=== PATIENT | female | born 1960 | race Caucasian/White ===

== ENCOUNTER 2020-04-27 22:24 | Emergency (ER) | payer OTHER ==
[2020-04-27] MEDS ORDERED: Sodium Chloride 0.9% 10 ML Syringe FLUSH PRN (23:08)
[2020-04-27] MEDS ORDERED: Metoprolol Tartrate 50 MG Tab PO ONE (23:09)
--- NOTE | 2020-04-27 23:22 | EDM.PDOC ---
ED HPI GENERAL MEDICAL PROBLEM - General Chief Complaint: General Stated Complaint: MEDICAL VIA [place] Time Seen by Provider: 04/27/20 23:05 Source of Information: Reports: Patient, EMS, RN. Denies: Old Records History Limitations: Reports: Other (no old records) - History of Present Illness INITIAL COMMENTS - FREE TEXT/NARRATIVE: 59 yo female from the [facility] noticed a cough last night and this morning a little hemoptysis. She felt fairly normal all day, but tonight had pretty severe transient hemoptysis that caused her to call 911. She has had some blood also from her nose. No fever. She felt short of breath tonight with the hemoptysis. She is a light life long smoker. Her did not accompany her [place] this weekend. She is not on any anticoagulants. Onset: Today, Sudden Onset Date: 04/27/20 Duration: Minutes:, Improving Location: Reports: Chest Quality: Reports: Other (no pain) Severity: Moderate (bleeding) Improves with: Reports: Other (? time) Worsens with: Reports: Other (unknown) Context: Reports: Other (See HPI) Associated Symptoms: Reports: Shortness of Breath. Denies: Fever/Chills Treatments SWATCH CHECKER: Reports: Other (see below) (none) - Related Data Allergies Allergy/AdvReac Type Severity Reaction Status Date / Time No Known Allergies Allergy Verified 04/27/20 22:54 Home Meds: Home Meds Metoprolol Succinate [Toprol XL] 200 mg PO DAILY #30 tab.sr.24h 04/28/20 [Rx] amLODIPine [Norvasc] 5 mg PO DAILY #30 tab 04/28/20 [Rx] Past Medical History HEENT History: Reports: Impaired Vision [employer] History: Reports: - Infectious Disease History Infectious Disease History: Reports: Chicken Pox, Measles, Mumps - Past Surgical History Head Surgeries/Procedures: Reports: None HEENT Surgical History: Reports: None Dermatological Surgical History: Reports: None Social & Family History - Tobacco Use Smoking Status *Q: Current Every Day Smoker Years of Tobacco use: 40 Packs/Tins Daily: 0.3 Used Tobacco, but Quit: No Second Hand Smoke Exposure: No - Caffeine Use Caffeine Use: Reports: Coffee - Recreational Drug Use Recreational Drug Use: No ED ROS GENERAL - Review of Systems Review Of Systems: See Below Constitutional: Reports: No Symptoms HEENT: Reports: Nosebleed Respiratory: Reports: Shortness of Breath, Cough, Hemoptysis. Denies: Wheezing, Pleuritic Chest Pain Cardiovascular: Reports: No Symptoms Endocrine: Reports: No Symptoms GI/Abdominal: Reports: No Symptoms : Reports: No Symptoms Musculoskeletal: Reports: No Symptoms Skin: Reports: No Symptoms Neurological: Reports: No Symptoms ED EXAM, GENERAL - Physical Exam Exam: See Below Exam Limited By: No Limitations General Appearance: Alert, WD/WN, No Apparent Distress Eye Exam: Bilateral Eye: Normal Inspection Ears: Normal External Exam, Normal Canal, Hearing Grossly Normal, Normal TMs Ear Exam: Bilateral Ear: Auricle Normal, Canal Normal, TM normal Nose: Other (some dried blood present) Throat/Mouth: Normal Inspection, Normal Lips, Normal Oropharynx (no blood noted in oropharynx), Normal Voice, No Airway Compromise Head: Atraumatic, Normocephalic Neck: Normal Inspection Respiratory/Chest: No Respiratory Distress, No Accessory Muscle Use, Decreased Breath Sounds. No: Wheezing, Accessory Muscle Use Cardiovascular: Regular Rate, Rhythm, No Edema, Tachycardia Back Exam: Normal Inspection Extremities: Normal Inspection, Normal Range of Motion, Non-Tender, No Pedal Edema. No: Pedal Edema Neurological: Alert, Oriented, CN II-XII Intact, Normal Cognition, No Motor/Sensory Deficits Psychiatric: Normal Affect, Normal Mood Skin Exam: Warm, Dry, Intact, Normal Color, No Rash Course - Vital Signs Last Recorded V/S: Last Vital Signs Temp 36.9 C 04/27/20 23:00 Pulse 69 04/28/20 02:36 Resp 26 H 04/28/20 02:36 BP 152/97 H 04/28/20 02:36 Pulse Ox 88 L 04/27/20 23:41 - Orders/Labs/Meds Orders: Active Orders 24 hr Category Date Time Status Cardiac Monitoring [RC] .As Directed Care 04/27/20 23:08 Active Sodium Chloride 0.9% [Saline Flush] Med 04/27/20 23:08 Active 10 ml FLUSH ASDIRECTED PRN Saline Lock Insert [OM.PC] Routine Oth 04/27/20 23:08 Ordered Medication Orders Sodium Chloride (Saline Flush) 10 ml FLUSH ASDIRECTED PRN PRN Reason: Keep Vein Open Last Admin: 04/27/20 23:28 Dose: 10 ml Documented by: GENO Labs: Laboratory Tests 04/27/20 04/27/20 04/27/20 Range/Units 23:12 23:21 23:21 WBC 12.9 H (4.5-11.0) K/uL RBC 5.21 (3.30-5.50) M/uL Hgb 14.2 (12.0-15.0) g/dL Hct 44.4 (36.0-48.0) % MCV 85 (80-98) fL MCH 27 (27-31) pg MCHC 32 (32-36) % Plt Count 325 (150-400) K/uL D-Dimer, Quantitative (0.0-400.0) ng/mL Sodium 139 L (140-148) mmol/L Potassium 3.8 (3.6-5.2) mmol/L Chloride 103 (100-108) mmol/L Carbon Dioxide 29 (21-32) mmol/L Anion Gap 10.8 (5.0-14.0) mmol/L BUN 18 (7-18) mg/dL Creatinine 1.3 H (0.6-1.0) mg/dL Est Cr Clr Drug Dosing 35.52 mL/min Estimated GFR (MDRD) 42 L (>60) Glucose 106 (74-106) mg/dL Calcium 8.5 (8.5-10.1) mg/dL Troponin I < 0.017 (0.000-0.056) ng/mL Urine Color Yellow (YELLOW) Urine Appearance Clear (CLEAR) Urine pH 5.5 (5.0-8.0) Ur Specific Success 1.025 (1.008-1.030) Urine Protein Negative (NEGATIVE) mg/dL Urine Glucose (UA) Negative (NEGATIVE) mg/dL Urine Ketones Negative (NEGATIVE) mg/dL Urine Occult Blood Moderate H (NEGATIVE) Urine Nitrite Negative (NEGATIVE) Urine Bilirubin Negative (NEGATIVE) Urine Urobilinogen 0.2 (0.2-1.0) EU/dL Ur Leukocyte Esterase Negative (NEGATIVE) Urine RBC 0-5 (0-5) Urine WBC Not seen (0-5) Ur Epithelial Cells Few Amorphous Sediment Few Urine Bacteria Not seen Urine Mucus Not seen 04/27/20 Range/Units 23:21 WBC (4.5-11.0) K/uL RBC (3.30-5.50) M/uL Hgb (12.0-15.0) g/dL Hct (36.0-48.0) % MCV (80-98) fL MCH (27-31) pg MCHC (32-36) % Plt Count (150-400) K/uL D-Dimer, Quantitative 133 (0.0-400.0) ng/mL Sodium (140-148) mmol/L Potassium (3.6-5.2) mmol/L Chloride (100-108) mmol/L Carbon Dioxide (21-32) mmol/L Anion Gap (5.0-14.0) mmol/L BUN (7-18) mg/dL Creatinine (0.6-1.0) mg/dL Est Cr Clr Drug Dosing mL/min Estimated GFR (MDRD) (>60) Glucose (74-106) mg/dL Calcium (8.5-10.1) mg/dL Troponin I (0.000-0.056) ng/mL Urine Color (YELLOW) Urine Appearance (CLEAR) Urine pH (5.0-8.0) Ur Specific Success (1.008-1.030) Urine Protein (NEGATIVE) mg/dL Urine Glucose (UA) (NEGATIVE) mg/dL Urine Ketones (NEGATIVE) mg/dL Urine Occult Blood (NEGATIVE) Urine Nitrite (NEGATIVE) Urine Bilirubin (NEGATIVE) Urine Urobilinogen (0.2-1.0) EU/dL Ur Leukocyte Esterase (NEGATIVE) Urine RBC (0-5) Urine WBC (0-5) Ur Epithelial Cells Amorphous Sediment Urine Bacteria Urine Mucus Meds: Medications Generic Name Dose Route Start Last Admin Trade Name Freq PRN Reason Stop Dose Admin Sodium Chloride 10 ml 04/27/20 23:08 04/27/20 23:28 Saline Flush FLUSH 10 ml ASDIRECTED PRN Administration Keep Vein Open Discontinued Medications Generic Name Dose Route Start Last Admin Trade Name Freq PRN Reason Stop Dose Admin Amlodipine Besylate 5 mg 04/28/20 00:29 04/28/20 00:40 Norvasc PO 04/28/20 00:30 5 mg ONETIME ONE Administration Metoprolol Tartrate 50 mg 04/27/20 23:09 04/27/20 23:27 Lopressor PO 04/27/20 23:10 50 mg ONETIME ONE Administration Metoprolol Tartrate 25 mg 04/28/20 01:17 04/28/20 01:51 Lopressor PO 04/28/20 01:18 25 mg ONETIME ONE Administration - Radiology Interpretation Free Text/Narrative:: CXR-emphysematous changes only Departure - Departure Time of Disposition: 03:05 Disposition: Home, Self-Care 01 Condition: Fair Clinical Impression: Posterior epistaxis, Tobacco use HTN (hypertension) Qualifiers: Hypertension type: unspecified Qualified Code(s): I10 - Essential (primary) hypertension Emphysema of lung Qualifiers: Emphysema type: unspecified Qualified Code(s): J43.9 - Emphysema, unspecified - Discharge Information *PRESCRIPTION DRUG MONITORING PROGRAM REVIEWED*: Not Applicable *COPY OF PRESCRIPTION DRUG MONITORING REPORT IN PATIENT MICKY: Not Applicable Prescriptions: amLODIPine [Norvasc] 5 mg PO DAILY #30 tab Metoprolol Succinate [Toprol XL] 200 mg PO DAILY #30 tab.sr.24h Instructions: Steps to Quit Smoking, Hypertension, Adult Referrals: PCP,None [Primary Care Provider] - Forms: ED Department Discharge Additional Instructions: Take amlodipine 5 mg and metoprolol succinate 200 mg every morning, next doses are due when pharmacies open in the morning. Use a humidifier to keep your nasal mucosa moist. Avoid salt. No smoking. Avoid doing an exertion until your BP is under control as exercise or straining will raise your BP and possibly trigger rebleeding of what I feel was a posterior nose bleed. Avoid aspirin, ibuprofen, or Aleve due to their effect on platelet function. Use acetaminophen if you need pain or fever relief. Recheck with your doctor [place]. Return as needed. Sepsis Event Note (ED) - Evaluation Sepsis Screening Result: No Definite Risk - Focused Exam Vital Signs: Vital Signs Temp Pulse Pulse Resp BP BP Pulse Ox 04/28/20 02:36 69 26 H 152/97 H 04/28/20 01:51 77 183/117 H 04/28/20 00:40 154/99 H 04/27/20 23:41 98 22 H 197/124 H 88 L 04/27/20 23:27 109 H 210/132 H 04/27/20 23:00 36.9 C 106 H 20 210/132 H 86 L 04/27/20 22:42 36.9 C 113 H 18 198/124 H 86 L - My Orders Last 24 Hours: My Active Orders 04/27/20 23:08 Cardiac Monitoring [RC] .As Directed Sodium Chloride 0.9% [Saline Flush] 10 ml FLUSH ASDIRECTED PRN Saline Lock Insert [OM.PC] Routine - Assessment/Plan Last 24 Hours: My Active Orders 04/27/20 23:08 Cardiac Monitoring [RC] .As Directed Sodium Chloride 0.9% [Saline Flush] 10 ml FLUSH ASDIRECTED PRN Saline Lock Insert [OM.PC] Routine
--- NOTE | 2020-04-28 00:25 | CRLCR ---
INDICATION: hemoptysis, cough, SOB TECHNIQUE: Chest 2 views. COMPARISON: None. FINDINGS: Cardiovascular and mediastinum: Heart size and vasculature are normal in caliber and appearance. Mediastinum is within normal limits. Lungs and pleural spaces: Lungs are clear. No sign of infiltrate or mass. No sign of pleural effusion. No pneumothorax. Bones and soft tissues: No significant findings. IMPRESSION: Unremarkable chest. Dictated by: Emmanuel Bishop MD @ 04/28/2020 00:24:43 (Electronically Signed)
[2020-04-28] MEDS ORDERED: amLODIPine 5 MG Tab PO ONE (00:29)
[2020-04-28] MEDS ORDERED: Metoprolol Tartrate 25 MG Tab PO ONE (01:17)
== END 2020-04-28 03:30 | disposition home or self-care (01) ==
LOC: JP.ED 22:24
DX: J43.9 Emphysema, unspecified (principal); R04.0 Epistaxis; I10 Essential (primary) hypertension; F17.210 Nicotine dependence, cigarettes, uncomplicated; Z79.899 Other long term (current) drug therapy
CPT/HCPCS: 36415; 71046; 80048; 81001; 84484; 85027; 85379; 99285; A9270; 92960; 99283